=== PATIENT | female | born 1960 | race Caucasian/White ===

== ENCOUNTER → 2020-03-12 13:30 | Outpatient (CLI) | payer OTHER, SELFPAY ==
--- NOTE | ~2020-03-12 | MM_ITS ---
EXAMINATION: MM screening lisa BI w julio HISTORY: Screening TECHNIQUE: Craniocaudal and mediolateral oblique 3-D tomosynthesis images were obtained and synthetic 2-D images were generated. CAD analysis was submitted and interpreted. COMPARISON: Comparison to multiple prior studies sequentially, with oldest reviewed study dated 06/2010. BREAST PARENCHYMAL COMPOSITION: There are scattered areas of fibroglandular density. FINDINGS: There is no evidence of suspicious mass, calcification, or architectural distortion to sugg est malignancy in either breast. There has been no suspicious interval change. IMPRESSION: 1. No mammographic evidence of malignancy. 2. Recommend routine screening mammography in one year. BI-RADS Category 1: Negative Reviewed, dictated and finalized at location A.
== END ==
PROVIDERS: Visit Provider Nurse Practitioner Obstetrics & Gynecology
DX: Z12.31 Encounter for screening mammogram for malignant neoplasm of breast (principal)
CPT/HCPCS: 77063; 77067

== ENCOUNTER 2021-02-13 00:17 | Day surgery (SDC) | payer OTHER, SELFPAY ==
[2021-02-03 15:00] VITALS: BMI 31.4
[2021-02-13 06:24] VITALS: BP 153/90; PULSE 59; RESP 20; TEMP 36; O2SAT 98; BMI 40.3
[2021-02-13] MEDS: LACTATED RINGERS 1,000 ML 150 ML IV CONT (06:34)
--- NOTE | 2021-02-13 06:36 | P.PNAN_ITS ---
Anes - Initial Pre Proc Eval Procedure: Operation Date: 02/13/21 07:30 Proposed Procedures p Screening Colonoscopy - Daniel Carmichael MD Date/Time: 02/13/21 06:36 Surgeon: Daniel Carmichael MD Pre Op Diagnosis: neoplasm screening Patient Data Age: 60 Gender: F Height: 1.7 m Weight: 116.7 kg Last Vital Signs Temp 36.0 C L 02/13/21 06:24 Pulse 59 L 02/13/21 06:24 Resp 20 02/13/21 06:24 BP 153/90 H 02/13/21 06:24 Pulse Ox 98 02/13/21 06:24 Allergies Allergy/AdvReac Type Severity Reaction Status Date / Time Sulfa (Sulfonamide Allergy Mild itching Verified 02/13/21 06:22 Antibiotics) Home Medications Medication Instructions Recorded Confirmed Type metoprolol succinate 150 mg PO DAILY 02/03/21 02/03/21 History sertraline 100 mg PO DAILY 02/03/21 02/03/21 History Patient hx anesthesia problems: none Family hx anesthesia problems: none [facility] Past Medical History Medical History (Updated 02/13/21 @ 06:36 by Quinton Gibson MD) HTN (hypertension) Morbid obesity Surgical History Surgical History (Updated 02/13/21 @ 06:36 by Quinton Gibson MD) H/O colonoscopy Social History Social History Smoking packs per day: 0.25 Smoking cigarettes per day: 5.0 Years smoked: 20 Smoking pack-years: 5.00 Smoking status: Former smoker Tobacco type: cigarettes Alcohol intake: current Drinks per week: 2 Living arrangements: alone Spiritual care concerns: No Anes - Eval Final PreProcedure Day of Procedure 02/13/21 06:36 Patient weight: morbidly obese Heart: regular rate and rhythm Lungs: clear to auscultation Airway: Mallampati scale class II Neurological: alert and oriented Last oral intake: >/= 8 hours ASA classification: III Emergent: no Anesthetic plan: proceed Anesthesia type and monitoring: general GIVS and standard monitoring Informed Consent: The patient's anesthetic plan and its attendant risks and benefits were discussed with the patient/family/POA. Questions were solicited and answers provided to the satisfaction of the patient/family/POA.
--- NOTE | 2021-02-13 07:17 | P.CONGI_ITS ---
Assessment and Plan Assessment and plan (1) Encounter for screening colonoscopy: Code(s): Z12.11 - Encounter for screening for malignant neoplasm of colon Status: Acute Assessment and Plan: Screening colonoscopy advised. Patient appears to be at average risk for colon polyps. (2) Morbid obesity: Code(s): E66.01 - Morbid (severe) obesity due to excess calories Status: Acute Assessment and Plan: Weight loss strongly encouraged. Diet control increase activity encouraged. GI Consult Note Consult date/time: 02/13/21 07:17 HPI: Brittaney Teague is a 60 year old female Presents for neoplasia screening. Patient states that her current weight appetite bowel movements are normal. She denies abdominal pain. Family history is noncontributory. Her last exam was 10 years ago. Patient presents today for screening colonoscopy. Review of Systems Review of Systems: All systems reviewed & are unremarkable except as noted in HPI and below PMFSH Past Medical History Medical History (Updated 02/13/21 @ 07:19 by Daniel Carmichael MD) HTN (hypertension) Morbid obesity Surgical History Surgical History (Updated 02/13/21 @ 06:36 by Quinton Gibson MD) H/O colonoscopy Social History Social History Smoking packs per day: 0.25 Smoking cigarettes per day: 5.0 Years smoked: 20 Smoking pack-years: 5.00 Smoking status: Former smoker Tobacco type: cigarettes Alcohol intake: current Drinks per week: 2 Living arrangements: alone Spiritual care concerns: No Meds Home Medications and Allergies Home Medications Medication Instructions Recorded Confirmed Type metoprolol succinate 150 mg PO DAILY 02/03/21 02/03/21 History sertraline 100 mg PO DAILY 02/03/21 02/03/21 History Allergies Allergy/AdvReac Type Severity Reaction Status Date / Time Sulfa (Sulfonamide Allergy Mild itching Verified 02/13/21 06:22 Antibiotics) Vital Signs Vital Signs - 24 hr 02/13/21 06:24 Temperature 96.8 F L Pulse Rate 59 L Respiratory Rate 20 Blood Pressure 153/90 H Pulse Oximetry 98 Exam Narrative: Physical exam reveals patient to be alert. Vital signs stable. HEENT exam is unremarkable. Patient is anicteric. Lungs are clear to auscult ation and percussion. Heart is without murmur or extra sounds. Abdominal exam Is obese. bowel sounds are present soft nontender with no hepatosplenomegaly. Digital external rectal exam is normal.
[2021-02-13 07:51] VITALS: BP 106/61; PULSE 56; RESP 16; O2SAT 100
[2021-02-13 08:01] VITALS: BP 115/61; PULSE 50; RESP 18; O2SAT 100
[2021-02-13 08:11] VITALS: BP 139/86; PULSE 52; RESP 20; O2SAT 100
== END 2021-02-13 08:37 | disposition home or self-care (01) ==
PROVIDERS: PCP Student in an Organized Health Care Education/Training Program; Visit Provider Internal Medicine Gastroenterology
PROC: 0DJD8ZZ Inspection of Lower Intestinal Tract, Via Natural or Artificial Opening Endoscopic (ICD-10-PCS; CPT 45378; principal; 2021-02-13 07:30)
DX: Z12.11 Encounter for screening for malignant neoplasm of colon (principal); I10 Essential (primary) hypertension; E66.01 Morbid (severe) obesity due to excess calories; Z87.891 Personal history of nicotine dependence; K64.8 Other hemorrhoids
CPT/HCPCS: 45378; J2704; J7120

== ENCOUNTER → 2021-06-16 12:21 | Outpatient (CLI) | payer OTHER, SELFPAY ==
--- NOTE | ~2021-06-16 | MM_ITS ---
EXAMINATION: MM screening lisa BI w julio HISTORY: Screening TECHNIQUE: Craniocaudal and mediolateral oblique 3-D tomosynthesis images were obtained and synthetic 2-D images were generated. CAD analysis was submitted and interpreted. COMPARISON: Comparison to multiple prior studies sequentially, with oldest reviewed study dated 09/15. BREAST PARENCHYMAL COMPOSITION: There are scattered areas of fibroglandular density. FINDINGS: Scattered left breast asymmetries are stable. There is no evidence of suspicious mass, calc ification, or architectural distortion to suggest malignancy in either breast. There has been no susp icious interval change. IMPRESSION: 1. No mammographic evidence of malignancy. 2. Recommend routine screening mammography in one year. BI-RADS Category 1: Negative Reviewed, dictated and finalized at location A. IST DES[employer]ER
== END ==
PROVIDERS: Visit Provider Nurse Practitioner Obstetrics & Gynecology
DX: Z12.31 Encounter for screening mammogram for malignant neoplasm of breast (principal)
CPT/HCPCS: 77063; 77067

== ENCOUNTER → 2021-08-03 12:13 | Outpatient (CLI) | payer OTHER, SELFPAY ==
--- NOTE | ~2021-08-03 | DEXA_ITS ---
Bone Density Report Name: EILEEN FITZPATRICK Age: 61 Sex: Female Ethnicity: White Date of : 1960 Indication: postmenopausal; screening for osteoporosis; height loss; Referring Provider: Joseph, Paola Shafer Study: Bone densitometry was performed. Exam Date: August 03, 2021 Accession number: [id number] Bone Density: Region BMD T-score Z-score Classification AP Spine (L1-L4) 0.987 -0.5 1.0 Normal Femoral Neck (Left) 0.791 -0.5 0.8 Normal Total Hip (Left) 0.999 0.5 1.5 Normal Femoral Neck (Right) 0.824 -0.2 1.1 Normal Total Hip (Right) 0.974 0.3 1.3 Normal Total Hip Mean 0.987 0.4 1.4 Normal World Health Organization criteria for BMD impression classify patients as: Normal (T-score at or above -1.0), Osteopenia (T-score between -1.0 and -2.5), or Osteoporosis (T-score at or below -2.5). 10-year Fracture Risk: FRAX not reported because: All T-scores for Spine Total, Hip Total, Femoral Neck at or above -1.0 Previous Exams: Region Exam Age BMD T-score BMD Change BMD Change Date g/cm2 vs Baseline vs Previous AP Spine(L1-L4) 08/03/2021 61 0.987 -0.5 -0.124* -0.090* 09/15/2013 53 1.077 0.3 -0.034* -0.034* 09/04/2010 50 1.112 0.6 Total Hip(Left) 08/03/2021 61 0.999 0.5 -0.062* -0.087* 09/15/2013 53 1.086 1.2 0.024 0.024 09/04/2010 50 1.062 1.0 Total Hip(Right) 08/03/2021 61 0.974 0.3 -0.092* -0.087* 09/15/2013 53 1.061 1.0 -0.005 -0.005 09/04/2010 50 1.066 1.0 *Denotes significance at 95% confidence level, LSC for AP Spine = 0.022 g/cm2, LSC for Total Hip = 0.027 g/cm2 Clinical Information Provided by Patient: Patient maximum height was 68 Menopause Age: 50 Drinks caffeinated beverages Onset of menses at age 10 Number of children 0 Impression: The patient has normal bone mass. The BMD for the AP Spine(L1-L4) decreased, changing by -0.090 since the last DXA exam. The BMD for the Total Hip(Left) decreased, changing by -0.087 since the last DXA exam. The BMD for the Total Hip(Right) decreased, changing by -0.087 since the last DXA exam. Discussion: BONE DENSITY IS ABOVE THE MINIMUM DESIRABLE LEVEL AT ALL SKELETAL SITES TESTED. This patient?s bone mineral density is above the minimum desirable level (T-score -1.0 or better) at all sites measured. The patient should follow a healthful lifestyl
== END ==
PROVIDERS: PCP Student in an Organized Health Care Education/Training Program; Visit Provider Nurse Practitioner Obstetrics & Gynecology
DX: Z78.0 Asymptomatic menopausal state (principal)
CPT/HCPCS: 77080

== ENCOUNTER → 2022-09-24 12:09 | Outpatient (CLI) | payer OTHER, SELFPAY ==
--- NOTE | ~2022-09-24 | MM_ITS ---
EXAMINATION: MM screening lisa BI w julio HISTORY: Screening mammogram, family history of breast cancer in her sister. TECHNIQUE: Craniocaudal and mediolateral oblique 3-D tomosynthesis images were obtained and synthetic 2-D images were generated. CAD analysis was submitted and interpreted. COMPARISON: 06/16/2021, 03/12/2020, 09/15/2013 BREAST PARENCHYMAL COMPOSITION: There are scattered areas of fibroglandular density. FINDINGS: RIGHT BREAST: No suspicious mass, calcification, or architectural distortion are identified to sugges t malignancy. There has been no suspicious interval change. LEFT BREAST: Indeterminate calcifications are present in the middle third of the outer left breast. N o suspicious mass or architectural distortion are identified. IMPRESSION: 1. Left breast calcifications. 2. Magnification views are recommended. BI-RADS Category 0: Incomplete: Needs additional imaging evaluation. Reviewed, dictated and finalized at location A.
== END ==
PROVIDERS: PCP Nurse Practitioner Obstetrics & Gynecology; Visit Provider Nurse Practitioner Obstetrics & Gynecology
DX: Z12.31 Encounter for screening mammogram for malignant neoplasm of breast (principal); R92.8 Other abnormal and inconclusive findings on diagnostic imaging of breast
CPT/HCPCS: 77063; 77067

== ENCOUNTER → 2022-10-22 08:14 | Outpatient (CLI) | payer OTHER, SELFPAY ==
--- NOTE | ~2022-10-22 | MM_ITS ---
EXAMINATION: MM diagnostic mammo unilat LT HISTORY: Left breast calcifications on screening mammogram TECHNIQUE: Magnification views of the left breast were performed and synthetic 2-D images were genera kunal. CAD analysis was submitted and interpreted. COMPARISON: 09/24/2022, 06/16/2021, 03/12/2020 FINDINGS: There are grouped round and fine pleomorphic calcifications in the middle third of the oute r breast at the 3:00 location approximately 9 cm from the nipple. No suspicious mass or architectural distortion are identified. IMPRESSION: 1. Indeterminate left breast calcifications. 2. Stereotactic biopsy is recommended. BI-RADS category 4, suspicious findings. Reviewed, dictated and finalized at location A.
== END ==
PROVIDERS: PCP Nurse Practitioner Obstetrics & Gynecology; Visit Provider Nurse Practitioner Obstetrics & Gynecology
DX: R92.8 Other abnormal and inconclusive findings on diagnostic imaging of breast (principal)
CPT/HCPCS: 77065